=== PATIENT | male | born 2000 | race Caucasian/White ===

== ENCOUNTER 2024-03-08 16:08 | Observation (INO) | payer BC ==
[2024-03-09 12:37] VITALS: TEMP 97.7
[2024-03-09 14:50] VITALS: BMI 37.6
[2024-03-09 16:07] VITALS: BP 132/64
== END 2024-03-09 18:29 | disposition home or self-care (01) ==
LOC: ERS 16:08 → ERHOLD 20:42 → 2SW 21:29
PROVIDERS: ADMIT Internal Medicine; ATTEND Internal Medicine
PROC: B246ZZZ Ultrasonography of Right and Left Heart (ICD-10-PCS; principal; 2024-03-09)
DX: R07.2 Precordial pain (principal); I10 Essential (primary) hypertension; F17.210 Nicotine dependence, cigarettes, uncomplicated; F12.90 Cannabis use, unspecified, uncomplicated; Z79.899 Other long term (current) drug therapy
CPT/HCPCS: 36415; 71045; 71260; 80048; 80053; 80061; 80306; 80307; 83690; 83735; 83880; 84484; 85025; 85379; 93005; 93306; 96372; 96374; G0378; J0360; J1650; J1885; Q9967